=== PATIENT | female | born 1990 | race Caucasian/White ===

== ENCOUNTER 2017-01-03 01:11 | Emergency (ER) | payer OTHER ==
--- NOTE | ~2017-01-03 | CR141 ---
[facility] A Service of [facility] & [facility] RADIOLOGY TEXT RESULTS PATIENT: TIERRA CURTIS LOCATION: SED : [birth year] UNIT #: [id number] AGE: [address]: Joel Galicia MD SEX: F ORDER DR: [id number] [address] [address] [id number] E MR#: [id number] Acc #: [id number] NAME: TIERRA CURTIS : 1990 SEX: F STUDY DATE/TIME: 01/03/2017 1:25 UNIT: SED ROOM: STUDY DESCRIPTION: CR Hand Min 3 Views Lt Attending Physician: Joel Galicia M.D. Ordering Physician: Joel Galicia M.D. Primary Care Physician: Lisa Nelson A.P.R.N. MEDICAL IMAGING REPORT This report is preliminary unless electronic signature is present. EXAM Left hand 3 views HISTORY 26-year-old female left hand pain and numbness. FINDINGS AP, lateral, and oblique projections of the hand show good mineralization with normal carpal, metacarpal, and phalangeal anatomy without indication of fracture, dislocation, or soft tissue radiopaque foreign body. IMPRESSION Normal hand. Dictated by... Philip Philip M.D. THIS IS AN ELECTRONICALLY VERIFIED REPORT Philip Philip M.D. at 01/04/2017 10:34 PM GLEN/lisa TD: 01/03/2017 07:11 JOB #: [id number] MEDICAL IMAGING REPORT Page 1 of 1
[~2017-01-03 01:11] MED LIST: ALBUTEROL17 GM INH; ALBUTEROL20 ml INH; ANTIBIOTIC PO; BACTRIM DS TABL1 TA1 PO; CLONIDINE HCL0.1 MG PO; COUGH MED PO; DICLOFENAC PO; FLEXERIL10 MG PO; IBUPROFEN M200 M1 PO; NAPROSYN500 MG PO; NO MEDICATIONS; NORFLEX100 M1 PO; PENICILLIN PO; PRILOSEC PO; PROMETHAZINE D118 ML PO; ROBAXIN PO; SKELAXIN PO; TAMIFLU75 M1 PO; TYLENOL #3; TYLENOL #3 PO; ULTRAM PO; VOLTAREN50 MG PO; VOLTAREN75 MG PO; ZOFRAN ODT4 MG PO; ZOLOFT100 MG PO; ZOLOFT50 MG PO; ZYRTEC
[2017-01-03] MEDS ORDERED: NO MEDICATIONS (01:18)
== END 2017-01-03 01:59 | disposition home or self-care (01) ==
LOC: SED 01:11
DX: S63.502A Unspecified sprain of left wrist, initial encounter (principal); S60.222A Contusion of left hand, initial encounter; J45.909 Unspecified asthma, uncomplicated; Z91.040 Latex allergy status; Z88.8 Allergy status to other drugs, medicaments and biological substances; X58.XXXA Exposure to other specified factors, initial encounter; Y93.72 Activity, wrestling; Y92.009 Unspecified place in unspecified non-institutional (private) residence as the place of occurrence of the external cause
CPT/HCPCS: 29125; 73130; 99283